=== PATIENT | male | born 1965 | race Caucasian/White ===

== ENCOUNTER 2018-06-22 14:36 | Outpatient (REF) | payer BC, SELFPAY ==
[2018-06-22 16:09] LABS: Bilirubin Negative (Negative); Blood Small (Negative); Clarity Clear; Glucose Negative (Negative); Ketones Negative (Negative); Leukocyte Esterase Negative (Negative); Nitrite Negative (Negative); Specific Gravity >= 1.030 (1.005-1.025); Urobilinogen 0.2 EU/dL (Up TO 0.2); pH 5.5 (5-8)
[2018-06-22 16:26] LABS: Bacteria Negative HPF (Negative); C & S Indicated? No; Casts Negative LPF (Negative); Crystals Few Amorphous HPF (Negative); Epithelial Cells Negative HPF (Negative); Mucus Moderate (Negative); WBC 0-2 HPF (0-5)
== END 2018-06-22 14:56 ==
LOC: LBN 14:36
PROVIDERS: PCP Family Medicine; Visit Provider Urology
DX: R31.29 Other microscopic hematuria (principal)
CPT/HCPCS: 81003; 81015